=== PATIENT | female | born 1970 | race Caucasian/White ===

== ENCOUNTER 2017-04-27 15:52 | Emergency (ER) | payer SELFPAY ==
[2017-04-27 16:00] VITALS: BP 112/71; PULSE 96; TEMP 100.1; BMI 29.0
--- NOTE | 2017-04-27 16:02 | PDOC ---
Rapid Medical Evaluation Time Seen by Provider: 04/27/17 15:53 Medical Evaluation: Allergies Allergy/AdvReac Type Severity Reaction Status Date / Time fluconazole [From Diflucan] Allergy Severe Hives Verified 07/25/14 22:13 04/27/17 15:53 I have performed a brief in-person evaluation of this patient. The patient presents with a chief complaint of: Generalized body aches. + sorethroat and dysphagia, "Hot to chest area." No chest pain or SOB. Symptoms started Sunday. Took tylenol. Pertinent physical exam findings: + fever, Erythema without exudate to posterior pharynx, pain to the left precervical lymph node. I have ordered the following: Rapid strep, influenza swab unavailable. The patient will proceed to the ED for further evaluation.
--- NOTE | 2017-04-27 16:35 | PDOC ---
History of Present Illness - General Chief Complaint: Cold Symptoms Stated Complaint: BODY ACHES Time Seen by Provider: 04/27/17 15:53 History Source: Patient Exam Limitations: No Limitations - History of Present Illness Initial Comments: 04/27/17 16:26 This 46 yr old female with c/o sore throat, cold symptoms and general malasise for past 3 days. While seen in ER waiting, throat cx was obtained. She did not get the flu shot. She has been taking theraflu OTC for 2 dyas. Past History - Past Medical History Allergies/Adverse Reactions: Allergies Allergy/AdvReac Type Severity Reaction Status Date / Time fluconazole [From Diflucan] Allergy Severe Hives Verified 04/27/17 16:00 Home Medications: Ambulatory Orders Diphenhydramine HCl [Benadryl Capsule -] 25 mg PO Q6H PRN #18 capsule 07/25/14 Epinephrine (Epi-Pen 0.3MG) [Epipen 0.3MG -] 0.3 mg IM ASDIR PRN #2 pens Fluconazole [Diflucan -] 100 mg PO DAILY 07/25/14 Prednisone [Deltasone -] 20 mg PO BID #8 tablet 07/25/14 Ranitidine HCl [Zantac] 150 mg PO BID #8 capsule 07/25/14 Diphenhydramine HCl [Benadryl -] 25 mg PO Q8H #30 capsule 04/27/17 COPD: No - Immunization History Immunization Up to Date: Yes - Suicide/Smoking/Psychosocial Hx Smoking History: Never smoked Have you smoked in the past 12 months: No Information on smoking cessation initiated: No Hx Alcohol Use: No Drug/Substance Use Hx: No Substance Use Type: None Review of Systems - Review of Systems Able to Perform ROS?: Yes Constitutional: Yes: Malaise. No: Chills, Fever, Night Sweats HEENTM: Yes: See HPI, Nose Pain, Nose Congestion, Throat Pain. No: Blurred Vision, Tearing, Ear Pain, Ear Discharge Respiratory: Yes: Cough. No: Orthopnea, Shortness of Breath, SOB at Rest, Wheezing, Productive cough Cardiac (ROS): No: Chest Pain All Other Systems: Reviewed and Negative *Physical Exam - Vital Signs Last Vital Signs Temp Pulse Resp BP Pulse Ox 100.1 F H 96 H 18 112/71 98 04/27/17 15:56 04/27/17 15:56 04/27/17 15:56 04/27/17 15:56 04/27/17 15:56 - Physical Exam General Appearance: Yes: Appropriately Dressed HEENT: positive: Normal Voice, TMs Normal, Pharyngeal Erythema, Tonsillar Erythema, Nasal Congestion, Rhinorrhea. negative: Muffled/Hoarse voice, Tonsillar Exudate, TM Bulging, TM Erythema Respiratory/Chest: positive: Lungs Clear Cardiovascular: positive: Regular Rate Gastrointestinal/Abdominal: positive: Flat, Soft Neurologic: positive: Fully Oriented, Alert Medical Decision Making - Medical Decision Making 04/27/17 16:36 Pt seen and examined. Pt with + URI and sore throat 04/27/17 16:38 Pt with - strep Discharged with benadyl for symptom relief. Pt with viral infection. *DC/Admit/Observation/Transfer Diagnosis at time of Disposition: Respiratory infection, upper - Discharge Dispostion Condition at time of disposition: Good Admit: No - Prescriptions Prescriptions: Diphenhydramine HCl [Benadryl -] 25 mg PO Q8H #30 capsule - Referrals - Patient Instructions Printed Discharge Instructions: DI for Viral Upper Respiratory Infection-Child Additional Instructions: Discharge instruction 1. take medication as directed 2 wash hands frequently - Post Discharge Activity Forms/Work/School Notes: Back to Work
== END 2017-04-27 16:42 | disposition home or self-care (01) ==
LOC: JERFT 15:52
DX: B99.9 Unspecified infectious disease (principal)
CPT/HCPCS: 87070; 87430; 99281-25

== ENCOUNTER 2019-04-22 20:07 | Emergency (ER) | payer SELFPAY ==
[2019-04-22 20:19] VITALS: TEMP 98; BMI 24.8
--- NOTE | 2019-04-22 20:42 | PDOC ---
History of Present Illness - General Chief Complaint: Pain Stated Complaint: ABD PAIN Time Seen by Provider: 04/22/19 20:41 - History of Present Illness Initial Comments: HPI: 48yo F with PMH of fibroids and ovarian cyst presenting with vaginal discomfort and bleeding. Patient states she has had these symptoms since Sunday such that she saw her general practitioner on Sunday and was prescribed a pill (Diflucan 150mg) which helped her feel better. She presents to the ED today because her pain has returned. She described the pain as "strong" and located in her vaginal area. She does not having burning when she urinates, but rather pain when she wipes the area. Reports yellow vaginal discharge as well as some vaginal bleeding. LMP 04/02/19. Denies nausea, vomiting, or diarrhea. No history of abdominal surgeries. Has been constipated; last bowel movement was a normal formed brown stool on Sunday. Has been passing gas normally. No fevers, chills, chest pain, or shortness of breath. History obtained with assistance from [facility] [employer] [id number] ROS: Constitutional: no fever, no chills HEENT: no throat pain, no dysphagia Cardiovascular: no chest pain, no palpitations Respiratory: no cough, no shortness of breath Gastrointestinal: +abdominal pain, no nausea Genitourinary: no dysuria, +vaginal discomfort Musculoskeletal: no myalgia, no arthralgia Skin: no rash, no itching Neurologic: no headache, no weakness PE: General: Awake, alert, and fully oriented, in no acute distress Head: No signs of trauma Eyes: EOMI, sclera anicteric ENT: Moist mucus membranes Neck: Normal ROM, supple Lungs: Lungs clear, Normal breath sounds Cardio: Regular rhythm, S1 and S2 present Abdomen: Soft, nondistended. Tender to palpation in lower abdomen. No CVA tenderness. Extremities: Normal range of motion, Distal pulses present SKIN: Warm, Dry, normal turgor Neurologic: Cranial nerves II through XII grossly intact. Normal speech Pelvic: External genitalia without erythema, exudate or discharge. Vaginal vault is with scant blood. Cervix is of normal color without lesion. The os is closed. Uterus is noted to be of appropriate size and nontender. No cervical motion tenderness is seen. No masses are palpated. The adnexa are without masses or tenderness. ED Course/MDM: DDX including but not limited to bacterial vaginosis, fibroids, , UTI, ovarian torsion, ovarian cyst, PID Labs Clinically consistent with bacterial vaginosis Also concerned for abnormal vaginal bleeding in setting of fibroid history. On exam, scant blood seen in vaginal vault. 04/22/19 20:41 CBC WBC 9.1 K/mm3 (4.0-10.0) 04/22/19 21:20 RBC 4.47 M/mm3 (3.60-5.2) 04/22/19 21:20 Hgb 8.9 GM/dL (10.7-15.3) L 04/22/19 21:20 Hct 28.9 % (32.4-45.2) L D 04/22/19 21:20 MCV 64.6 fl (80-96) L 04/22/19 21:20 MCH 19.8 pg (25.7-33.7) L D 04/22/19 21:20 MCHC 30.7 g/dl (32.0-36.0) L 04/22/19 21:20 RDW 20.3 % (11.6-15.6) H 04/22/19 21:20 Plt Count 432 K/MM3 (134-434) D 04/22/19 21:20 MPV 7.8 fl (7.5-11.1) 04/22/19 21:20 Absolute Neuts (auto) 5.4 K/mm3 (1.5-8.0) 04/22/19 21:20 Neutrophils % 58.8 % (42.8-82.8) 04/22/19 21:20 Lymphocytes % 29.6 % (8-40) 04/22/19 21:20 Monocytes % 8.4 % (3.8-10.2) 04/22/19 21:20 Eosinophils % 2.5 % (0-4.5) 04/22/19 21:20 Basophils % 0.7 % (0-2.0) 04/22/19 21:20 Nucleated RBC % 0 % (0-0) 04/22/19 21:20 Hypochromia 2+ 04/22/19 21:20 Platelet Estimate Adequate 04/22/19 21:20 Platelet Comment Giant platelets 04/22/19 21:20 Polychromasia 1+ 04/22/19 21:20 Poikilocytosis 1+ 04/22/19 21:20 Anisocytosis 1+ 04/22/19 21:20 Microcytosis 2+ 04/22/19 21:20 Macrocytosis 1+ 04/22/19 21:20 Ovalocytes 1+ 04/22/19 21:20 No leukocytosis Hgb low; MCV is low, consistent with microcytic anemia. Patient without complaints of weakness, chest pain, or shortness of breath. I have low suspicion that her vaginal bleeding is significant to cause anemia. CMP Sodium 142 mmol/L (136-145) 04/22/19 21:20 Potassium 3.7 mmol/L (3.5-5.1) 04/22/19 21:20 Chloride 110 mmol/L (98-107) H 04/22/19 21:20 Carbon Dioxide 25 mmol/L (21-32) 04/22/19 21:20 Anion Gap 7 MMOL/L (8-16) L 04/22/19 21:20 BUN 9.9 mg/dL (7-18) 04/22/19 21:20 Creatinine 0.8 mg/dL (0.55-1.3) 04/22/19 21:20 Est GFR (CKD-EPI)AfAm 101.75 04/22/19 21:20 Est GFR (CKD-EPI)NonAf 87.79 04/22/19 21:20 Random Glucose 111 mg/dL (74-106) H 04/22/19 21:20 Calcium 8.6 mg/dL (8.5-10.1) 04/22/19 21:20 Total Bilirubin 0.1 mg/dL (0.2-1) L 04/22/19 21:20 AST 15 U/L (15-37) 04/22/19 21:20 ALT 15 U/L (13-61) 04/22/19 21:20 Alkaline Phosphatase 84 U/L (45-117) 04/22/19 21:20 Total Protein 7.1 g/dl (6.4-8.2) 04/22/19 21:20 Albumin 3.4 g/dl (3.4-5.0) 04/22/19 21:20 Electrolytes unremarkable UA negative for infection negative Will treat clinically for bacterial vaginosis Prescription for metrogel sent to pharmacy To follow up with gynecology to further evaluate abnormal vaginal bleeding Return precautions Stable for discharge 04/22/19 22:58 Past History - Past Medical History Allergies/Adverse Reactions: Allergies Allergy/AdvReac Type Severity Reaction Status Date / Time fluconazole [From Diflucan] Allergy Severe Hives Verified 04/27/17 16:00 Home Medications: Ambulatory Orders Metronidazole [Vandazole] 70 gm VG DAILY #5 gel.w.appl 04/22/19 COPD: No - Immunization History Immunization Up to Date: Yes - Psycho Social/Smoking Cessation Hx Smoking History: Never smoked Have you smoked in the past 12 months: No Hx Alcohol Use: No Drug/Substance Use Hx: No Substance Use Type: None *Physical Exam - Vital Signs Last Vital Signs Temp Pulse Resp BP Pulse Ox 98.0 F 70 19 127/37 L 98 04/22/19 20:16 04/22/19 20:16 04/22/19 20:16 04/22/19 20:16 04/22/19 20:16 ED Treatment Course - LABORATORY CBC & Chemistry Diagram: 04/22/19 21:20 04/22/19 21:20 Discharge - Discharge Information Problems reviewed: Yes Clinical Impression/Diagnosis: Vaginal discomfort, Bacterial vaginosis Condition: Stable Disposition: HOME - Additional Discharge Information Prescriptions: Metronidazole [Vandazole] 70 gm VG DAILY #5 gel.w.appl - Follow up/Referral CallBack Reminder: gc - Patient Discharge Instructions Patient Printed Discharge Instructions: Metronidazole Vaginal Additional Instructions: You were seen in the Emergency Department for vaginal discharge. Blood work was within normal limits. Prescription sent to your pharmacy. Take as instructed. Follow-up with your basting machine operator to discuss this ED visit and to further evaluate your symptoms. Your workup is not complete until you do so. Call and make an appointment. Return to the Emergency Department if you experience: -heavy bleeding (more than two pads per hour for two hours) -severe pain -lightheadedness -shortness of breath -high fever -any other concerning symptoms === Te vieron en el departamento de emergencias por flujo vaginal. El anlisis de michaela estuvo dentro de los lmites normales. Receta enviada a edmond farmacia. Tmelo segn las instrucciones. Dominique un seguimiento con edmond gineclogo para analizar esta visita al servicio de urgencias y evaluar chito sntomas. Edmond trabajo no est completo hasta que lo dominique. Llame y dominique aden reinier. Regrese al Departamento de Emergencias si experimenta: Sangrado pesado (ms de dos almohadillas por hora sea dos horas) -dolor carolyn aturdimiento falta de aliento -fiebre elizabeth -cualquier otro sntoma preocupante - Post Discharge Activity
--- NOTE | 2019-04-22 20:49 | PDOC ---
Documentation entered by Mary House SCRIBE, acting as scribe for Elli De La Vega MD. Elli De La Vega MD: This documentation has been prepared by the shaiibe, Mary House SCRIBE, under my direction and personally reviewed by me in its entirety. I confirm that the documentation accurately reflects all work, treatment, procedures, and medical decision making performed by me. Attending Attestation - Resident Resident Name: Melissa Fleming - ED Attending Attestation I have performed the following: I have examined & evaluated the patient, The case was reviewed & discussed with the resident, I agree w/resident's findings & plan, Exceptions are as noted - HPI HPI: 04/22/19 21:32 48-year-old female who has had some vaginal discomfort and saw her primary care physician on Sunday who gave her Diflucan. She denies any nausea, vomiting, fever ,chills ,diarrhea. Last menstrual period was this month - Physicial Exam PE: 04/22/19 21:34 wnwd 48 yo female p/w vaginal discomfort for several days head ncat neck supple lungs cta b/l cvs [id number] abd nontender please refer to Dr Fleming's note( scant blood oin vault, no cmt skin warm and dry neurp axox3 ,ambulatory - Medical Decision Making 04/22/19 21:36 UA 04/22/19 21:39 negative test Urinalysis negative 04/22/19 22:31 pt has an anemia but has no chest pain, no shortness of breath,is not orthostatic hypotension scant blood in vagnal vault imp dysfuntional uterine bleeding follow up with field talent qualification specialist
[2019-04-22 21:26] LABS: BASO % 0.7 % (0-2.0); EOS % 2.5 % (0-4.5); HEMATOCRIT 28.9 % (32.4-45.2); HEMOGLOBIN 8.9 GM/dL (10.7-15.3); LYMPH % 29.6 % (8-40); MCHC 30.7 g/dl (32.0-36.0); MEAN CELL VOLUME 64.6 fl (80-96); MEAN PLT VOLUME 7.8 fl (7.5-11.1); MONO % 8.4 % (3.8-10.2); NEUT % 58.8 % (42.8-82.8); PLATELET COUNT 432 K/MM3 (134-434); RBC 4.47 M/mm3 (3.60-5.2); RDW 20.3 % (11.6-15.6); WHITE BLOOD COUNT 9.1 K/mm3 (4.0-10.0)
[2019-04-22 21:26] LABS: EPI CELLS 1.9 /HPF (0-5/HPF); HYALINE CASTS 0 /lpf (0-8); PH,URINE 5.5 (5.0-8.0); URINE APPEARANCE CLEAR; URINE BACTERIA 15.8 /hpf (NEGATIVE); URINE BILIRUBIN NEGATIVE (NEGATIVE); URINE COLOR YELLOW; URINE GLUCOSE (UA) NEGATIVE (NEGATIVE); URINE KETONE NEGATIVE (NEGATIVE); URINE LEUK ESTERASE NEGATIVE (NEGATIVE); URINE NITRITE NEGATIVE (NEGATIVE); URINE PROTEIN NEGATIVE (NEGATIVE); URINE RBC 5 /hpf (0-4); URINE UROBILINOGEN 0.2 mg/dL (0.2-1.0); URINE WBC 1 /hpf (0-5)
[2019-04-22 21:30] LABS: MCH 19.8 pg (25.7-33.7)
[2019-04-22 21:55] LABS: ALBUMIN 3.4 g/dl (3.4-5.0); BILIRUBIN,TOTAL 0.1 mg/dL (0.2-1); BLOOD UREA NITROGEN 9.9 mg/dL (7-18); CALCIUM 8.6 mg/dL (8.5-10.1); CREATININE 0.8 mg/dL (0.55-1.3); POTASSIUM 3.7 mmol/L (3.5-5.1); TOT PROT 7.1 g/dl (6.4-8.2)
[2019-04-22 21:57] VITALS: BP 116/69; PULSE 64
[2019-04-22 21:59] LABS: ANISOCYTOSIS 1+; MACROCYTOSIS 1+; OVALOCYTE 1+
[2019-04-22 22:00] LABS: PLATELET ESTIMATE ADEQUATE
== END 2019-04-22 23:05 | disposition home or self-care (01) ==
LOC: JER 20:07
DX: N76.0 Acute vaginitis (principal); B96.89 Other specified bacterial agents as the cause of diseases classified elsewhere; N93.8 Other specified abnormal uterine and vaginal bleeding; Z88.1 Allergy status to other antibiotic agents; Z86.2 Personal history of diseases of the blood and blood-forming organs and certain disorders involving the immune mechanism; Z87.42 Personal history of other diseases of the female genital tract
CPT/HCPCS: 36415; 80053; 81003; 84703; 85025; 87086; 87491; 87591; 87661; 99283-25